=== PATIENT | male | born 1970 | race Caucasian/White ===

== ENCOUNTER 2023-12-15 07:51 | Outpatient (REF) | payer OTHER, SELFPAY | END 2023-12-15 07:52 | disposition home or self-care (01) | LOC: HO.BBR 07:51 | PROVIDERS: Visit Provider Physician Assistant | DX: D45 Polycythemia vera (principal) | CPT/HCPCS: 85018; 99195 ==

== ENCOUNTER 2023-12-29 08:05 | Outpatient (REF) | payer OTHER, SELFPAY | END 2023-12-29 08:06 | disposition home or self-care (01) | LOC: HO.BBR 08:05 | PROVIDERS: Visit Provider Physician Assistant | DX: D45 Polycythemia vera (principal) | CPT/HCPCS: 85014; 85018; 99195 ==

== ENCOUNTER 2024-01-12 08:04 | Outpatient (REF) | payer OTHER, SELFPAY | END 2024-01-12 08:05 | disposition home or self-care (01) | LOC: HO.BBR 08:04 | PROVIDERS: Visit Provider Physician Assistant | DX: D45 Polycythemia vera (principal) | CPT/HCPCS: 85018; 99195 ==

== ENCOUNTER 2024-01-26 08:55 | Outpatient (REF) | payer OTHER, SELFPAY | END 2024-01-26 08:56 | disposition home or self-care (01) | LOC: HO.BBR 08:55 | PROVIDERS: Visit Provider Physician Assistant | DX: D45 Polycythemia vera (principal) | CPT/HCPCS: 85014; 85018; 99195 ==

== ENCOUNTER 2024-03-29 08:05 | Outpatient (REF) | payer OTHER, SELFPAY | END 2024-03-29 08:06 | disposition home or self-care (01) | LOC: HO.BBR 08:05 | PROVIDERS: Visit Provider Physician Assistant | DX: D45 Polycythemia vera (principal) | CPT/HCPCS: 85018; 99195 ==

== ENCOUNTER 2024-05-31 08:09 | Outpatient (REF) | payer OTHER, SELFPAY ==
--- OUTSIDE RECORDS SUMMARY | 2024-05-31 08:19 | XMS_ITS | Clinical Summary ---
Author Organization [facility] Address [address] [place] [address] Care Team Providers Care Bath Steward/Stewardess Name Role Phone Desire Negro NP Primary Care Provider [phone] Allergies No known active allergies Medications Medication Sig Dispensed Refills Start Date End Date Status Cholecalciferol 50 MCG (1999) TABS Take 3 tablets by mouth daily. 0 Active allopurinol (ZYLOPRIM) 300 MG tablet Take 1 tablet (300 mg total) by mouth daily. 0 Active fluticasone (FLONASE) 50 MCG/ACT nasal spray spray/apply 2 sprays in each nostril daily. 0 Active aspirin EC 81 MG tablet Take 1 tablet (81 mg total) by mouth daily. 0 Active Active Problems Problem Noted Date Diagnosed Date Polycythemia vera 2023 Social History Tobacco Use Types Packs/Day Years Used Date Smoking Tobacco: Never Smokeless Tobacco: Never Tobacco Cessation:Counseling Given: Not Answered Sex and Gender Information Value Date Recorded Sex Assigned at Not on file Gender Identity Not on file Sexual Orientation Not on file Job Start Date Occupation Industry Not on file Not on file Not on file Last Filed Vital Signs Vital Sign Reading Time Taken Comments Blood Pressure 133/96 01/25/2024 9:47 AM EDT Pulse 87 01/25/2024 9:47 AM EDT Temperature 36.6 ??C (97.9 ??F) 01/25/2024 9:47 AM ED T Respiratory Rate - - Oxygen Saturation 98% 01/25/2024 9:47 AM EDT Inhaled Oxygen Concentration - - Weight 102.5 kg (226 lb) 01/25/2024 9:47 AM EDT Height - - Body Mass Index - - Plan of Treatment Health Maintenance Due Date Last Done Comments Hepatitis B Vaccines (1 of 3 - 3-dose series) 1969 Hepatitis C Screening 1969 Pneumococcal Vaccine (1 of 2 - PCV) 12/15/1975 Depression Screening 1981 Preventative Health Evaluation 12/15/1987 DTap / Tdap / Td (1 - Tdap) 1988 Shingrix-Zoster Vaccine (1 o f 2) 1988 Colon Cancer Screening (Colonoscopy) 2014 COVID-19 Vaccine (3 - Pfizer risk series) 08/10/2020 07/13/2020, 06/22/2020 Influenza Vaccine (#1) 2023 RSV Ped < 20 months Aged Out No longe r eligible based on patient's age to complete this topic Care Teams Bath Steward/Stewardess Relationship Specialty Start Date End Date Desire Negro NP [address] [place] [address] PCP - General Family Medicine 11/22/23
--- OUTSIDE RECORDS SUMMARY | 2024-05-31 08:19 | XMS_ITS | Clinical Summary ---
Author Organization [facility] Address [address] [place] [address] Care Team Providers Care B2B Account Executive Name Role Phone Unavailable Primary Care Provider Unavailabl e Allergies No known active allergies Medications No known medications Social History Tobacco Use Types Packs/Day Years Used Date Smoking Tobacco: Never Assessed Sex and Gender Information Value Date Recorded Sex Assigned at Not on file Gender Identity Not on file Sexual Orientation Not on file Last Filed Vital Signs Vital Sign Reading Time Taken Comments Blood Pressure 116/81 05/28/2020 1:21 PM EST Pulse 95 05/28/2020 1:21 PM EST Temperature 36.6 ??C (97.8 ??F) 05/28/2020 1:21 PM ES T Respiratory Rate - - Oxygen Saturation 99% 05/28/2020 1:21 PM EST Inhaled Oxygen Concentration - - Weight 95.3 kg (210 lb) 05/28/2020 1:21 PM EST Height 175.3 cm (5' 9 ) 05/28/2020 1:21 PM EST Body Mass Index 31.01 05/28/2020 1:21 PM EST Plan of Treatment Health Maintenance Due Date Last Done Comments Hepatitis C Virus Screening 1969 HIV Screening 1982 DTaP/Tdap/Td Vaccines (1 - Tdap) 1988 Hepatitis B Vaccines (1 of 3 - 19+ 3-dose series) 1988 Colonoscopy 2014 Pneumococcal Vaccines 50+ (1 of 1 - PCV) 12/15/2019 Zoster (Shingles) Vaccine (1 of 2) 12/15/2019 Influenza Vaccine 11/02/2023 COVID-19 Vaccine ( - 2023-2 5 season) 2023 Pneumococcal Vaccine: Pediat kev (0-5 Years) and At-Risk Patients (6 to 49 Years) Aged Out No longer eligible b ased on patient's age to complete this topic
--- OUTSIDE RECORDS SUMMARY | 2024-05-31 08:19 | XMS_ITS | Clinical Summary ---
Author Organization [address] [facility] Building Address [address] [place] [phone] Phone Care Team Providers Care Glass Fitter Name Role Phone Desire Negro NP Primary Care Provider [phone] Allergies No known active allergies Medications cholecalciferol (VITAMIN D-3) 50 mcg (2,000 unit) tablet Take 3 tablets by mouth daily. 4 Active allopurinoL (ZYLOPRIM) 300 mg tablet Take 1 Tablet by mouth daily 4 Active aspirin 81 mg EC tablet Take 1 Tablet by mouth daily 3 Active fluticasone propionate (FLONASE) 50 mcg/actuation nasal spray USE 2 SPRAYS IN EACH NOSTRIL EVERY DAY 48 mL 4 Active amLODIPine (NORVASC) 5 mg tablet Take 1 tablet (5 mg total) by mouth 1 (one) time each day. 90 each 1 5 11/05/19 25 Active amLODIPine (NORVASC) 5 mg tablet Take 1 tablet (5 mg total) by mouth 1 (one) time each day. 90 each 1 5 05/08/19 25 Discontinu ed(Reorder ) Active Problems Problem Noted Date Diagnosed Date Primary hypertension 01/12/2024 Acute idiopathic gout of multiple sites 10/25/19 Thrombocytopenia 10/24/2022 Thrombocytosis 10/24/2022 Vitamin D deficiency 10/24/2022 Encounters Date Type Department Care Team Description 04/22/2024 8:30 AM EST Office Visit Internal Medicine - [address] [phone] Desire Negro, REHANA Primary hypertension (Primary Dx); Acute idiopathic gout of multiple sites; Vitamin D deficiency; Acute otitis externa of left ear, unspecified type from Last 3 Months Immunizations Name Administration Dates Next Due Influenza trivalent, MDCK, 0 .5mL, preservative free (Flucelvax) 6mo and older 02/23/2024 Pfizer Covid-19 Bivalent, Or iginal + Ba.1 (Non-US Trademark [employer] Bivalent) 12/26/2021 Td Tetanus diptheria (Tdvax) 7yo and older 05/26 Social History Tobacco Use Types Packs/Day Years Used Date Smoking Tobacco: Never Smokeless Tobacco: Never Sex and Gender Information Value Date Recorded Sex Assigned at Not on file Legal Sex Male 9:04 AM EST Gender Identity Not on file Sexual Orientation Not on file Obstetrics History Last Filed Vital Signs Vital Sign Reading Time Taken Comments Blood Pressure 124/88 04/22/2024 8:43 AM EST Pulse 72 04/22/2024 8:36 AM EST Temperature - - Respiratory Rate - - Oxygen Saturation - - Inhaled Oxygen Concentration - - Weight 104 kg (229 lb 9.6 oz) 04/22/2024 8:36 AM EST Height 175.3 cm (5' 9 ) 04/22/2024 8:36 AM EST Body Mass Index 33.91 04/22/2024 8:36 AM EST Plan of Treatment Upcoming Encounters Date Type Department Care Team (Late st Contact Info) Description 08/06/2024 9:00 AM EDT Office Visit [facility] Hematology Oncology [address] [place] [phone] Alexus Graham MD [address] [place] [address] 09/04/2024 9:00 AM EDT Office Visit Internal Medicine - [address] [phone] Desire Negro, REHANA [address] [place] [address] Health Maintenance Due Date Last Done Comments Pneumococcal Vaccine: 50+ Years (1 of 2 - PCV) 1988 Zoster Vaccines (1 of 2) 1988 Depression Screening 03/06/2022 HIV Screening 03/06/2022 Social Influencers of Health Screening 03/06/2022 COVID-19 Vaccine (4 - 2023-2 5 season) 2023 03/14/2021, 07/13/2020, 06/22/2020 Hypertension/CHF/CAD Annual BMP Blood Test 05/26/2024 05/26/2023 Cholesterol Screening (Lipid Panel) 05/26/2028 05/26/2023 Colorectal Cancer Screening: Colonoscopy 2030 2020 DTaP,Tdap,and Td Vaccines (2 - Td or Tdap) 05/26/2033 05/26/2023 Hepatitis C Screening Completed 10/24/2022 Influenza Vaccine Completed 02/23/2024, 01/23/2022, 01/25/2021 HIB Vaccines Aged Out No longer eligi ble based on patient's age to complete this topic HPV Vaccines Aged Out No longer eligi ble based on patient's age to complete this topic Hepatitis A Vaccines Aged Out No long er eligible based on patient's age to complete this topic Hepatitis B Vaccines Discontinued IPV Vaccines Aged Out No longer eligi ble based on patient's age to complete this topic MMR Vaccines Aged Out No longer eligi ble based on patient's age to complete this topic Meningococcal ACWY Vaccine Aged Out N o longer eligible based on patient's age to complete this topic Meningococcal B Vacine Aged Out No lo nger eligible based on patient's age to complete this topic Pneumococcal Vaccine: Pediatrics (0 to 5 Years) and At-Risk Patients (6 to 64 Years) Discontinued RSV Immunization Patients Under 20 months Aged Out No longer eligible based on patient's age to complete this topic Varicella Vaccines Aged Out No longer eligible based on patient's age to complete this topic Procedures Procedure Name Priority Date/Time Associated Diagnosis Comments ANNUAL BMP BLOOD TEST Routine 05/26/2023 LIPID PANEL Routine 05/26/2023 HEPATITIS C SCREENING Routine 10/24/2022 COLONOSCOPY Routine 2020 from Last 3 Months or Most Recently Relevant to Health Maintenance Results * Annual BMP Blood Test (05/26/2023) Pathologist [facility] Annual BMP Blood Test abstracted [facility] Provider HEALTH MAINTENANCE Final Result * (ABNORMAL) Lipid panel (05/26/2023) [facility] LDL/HDL Ratio 3 0 - 4 Triglycerides 80 0 - 150 mg/dL Cholesterol 211(A) 0 - 200 mg/dL HDL 72 >=40 mg/dL LDL Cholesterol 123(A) 0 - 100 mg/dL Blood Venous blood specimen / Unknown [facility] Provider LAB BLOOD ORDERABLES Thelma l Result * Hepatitis C Screening (10/24/2022) Pathologist [facility] Hepatitis C Screening abstracted [facility] Provider HEALTH MAINTENANCE Final Result * Colonoscopy (2020) Pathologist [facility] Colonoscopy abstracted, no interpretation Anatomical Region Laterality Modality Other [facility] Provider HEALTH MAINTENANCE Final Result from Last 3 Months or Most Recently Relevant to Health Maintenance Insurance Care Teams Glass Fitter Relationship Specialty Start Date End Date Desire Negro NP [address] [place] [id number] PCP - General 05/04/22
== END 2024-05-31 08:10 | disposition home or self-care (01) ==
LOC: HO.BBR 08:09
PROVIDERS: Visit Provider Internal Medicine
DX: D45 Polycythemia vera (principal)
CPT/HCPCS: 85014; 85018; 99195

== ENCOUNTER 2024-07-26 08:02 | Outpatient (REF) | payer OTHER, SELFPAY ==
--- OUTSIDE RECORDS SUMMARY | 2024-07-26 08:07 | XMS_ITS | Clinical Summary ---
Author Organization [facility] Address [address] [place] [address] Care Team Providers Care Railroad Emergency Services Manager Name Role Phone Desire Negro NP Primary Care Provider [phone] Allergies No known active allergies Medications Medication [...] age to complete this topic Care Teams Railroad Emergency Services Manager Relationship Specialty Start Date End Date Desire Negro NP [address] [place] [address] PCP - General Family Medicine 11/22/23
--- OUTSIDE RECORDS SUMMARY | 2024-07-26 08:07 | XMS_ITS | Clinical Summary ---
Author Organization [address] [facility] Building Address [address] [place] [phone] Phone Care Team Providers Care Wheel Worker Name Role Phone Desire Negro NP Primary Care Provider Allergies No known active allergies Medications cholecalcifero l (VITAMIN D-3) 50 mcg (2,000 unit) tablet Take 3 tablets by mouth daily. 4 Active aspirin 81 mg EC tablet Take 1 Tablet by mouth daily 3 Active fluticasone propionate (FLONASE) 50 mcg/actuation nasal spray USE 2 SPRAYS IN EACH NOSTRIL EVERY DAY 48 mL 4 Active amLODIPine (NORVASC) 5 mg tablet Take 1 tablet (5 mg total) by mouth 1 (one) time each day. 90 each 1 5 11/05/19 25 Active allopurinoL (ZYLOPRIM) 300 mg tablet TAKE 1 TABLET BY MOUTH EVERY DAY 90 tablet 1 5 Active allopurinoL (ZYLOPRIM) 300 mg tablet Take 1 Tablet by mouth daily 4 07/23/19 25 Discontinued Active Problems Problem Noted Date Diagnosed Date Primary hypertension 01/12/2024 Acute idiopathic gout of multiple sites 10/25/19 23 Thrombocytopenia (CMS/HCC V24) 10/24/2022 Thrombocytosis 10/24/2022 Vitamin D deficiency 10/24/2022 Immunizations Name Administration Dates Next Due Influenza trivalent, MDCK, 0 .5mL, preservative free (Flucelvax) 6mo and older 02/23/2024 Pfizer Covid-19 Bivalent, Or iginal + Ba.1 (Non-US Trademark COMIRNATY Bivalent) 12/26/2021 Td Tetanus diptheria (Tdvax) 7yo [...] Description 08/06/2024 9:00 AM EDT Office Visit [facility] Hematology Oncology [address] [place] [phone] Alexus Graham MD [address] [place] [address] 09/04/2024 9:00 AM EDT Office Visit Internal Medicine - [address] [place] [address] Desire Negro NP [address] [place] [address] Health Maintenance Due Date Last Done Comments [...] age to complete this topic Meningococcal B Vaccine Aged Out No l onger eligible based on patient's age to complete [...] Results * Annual BMP Blood Test (05/26/2023) [facility] Annual BMP Blood Test abstracted [facility] Provider HEALTH MAINTENANCE Final Result * (ABNORMAL) Lipid panel (05/26/2023) [facility] LDL/HDL Ratio 3 0 - 4 Triglycerides 80 0 - 150 mg/dL Cholesterol 211(A) 0 - 200 mg/dL HDL 72 >=40 mg/dL LDL Cholesterol 123(A) 0 - 100 mg/dL Blood Venous blood specimen / Unknown [facility] Provider LAB BLOOD ORDERABLES Thelma l Result * Hepatitis C Screening (10/24/2022) [facility] Hepatitis C Screening abstracted [facility] Provider HEALTH MAINTENANCE Final Result * Colonoscopy (2020) [facility] Colonoscopy abstracted, no interpretation Anatomical Region Laterality Modality Other [facility] Provider HEALTH MAINTENANCE Final Result from Last 3 Months or Most Recently Relevant to [place] [id number] Care Teams Wheel Worker Relationship Specialty Start Date End Date Desire Negro NP [address] [facility] [place] [address] [facility] - General 05/04/22
--- OUTSIDE RECORDS SUMMARY | 2024-07-26 08:07 | XMS_ITS | Clinical Summary ---
Author Organization [facility] Address [address] [place] [address] Care Team Providers Care Winder Tender Name Role Phone Unavailable Primary Care Provider Unavailabl e Allergies No known active allergies Medications No known medications Social History Tobacco Use Types Packs/Day Years Used Date Smoking Tobacco: Never Assessed Sex and Gender Information Value Date Recorded Sex Assigned at Not on file Legal Sex Male 12:52 PM EST Gender Identity Not on file Sexual [...] (1 of 3 - 19+ 3-dose series) 12/02 Colonoscopy 2014 Pneumococcal Vaccines 50+ (1 of 1 - PCV) 12/15/2019 Zoster (Shingles) Vaccine (1 of 2) 12/15/2019 Influenza Vaccine 11/02/2023 COVID-19 Vaccine ( - 2023- season) 2023 Insurance [facility]
== END 2024-07-26 08:03 | disposition home or self-care (01) ==
LOC: HO.BBR 08:02
PROVIDERS: Visit Provider Internal Medicine
DX: D45 Polycythemia vera (principal)
CPT/HCPCS: 85014; 85018; 99195

== ENCOUNTER 2024-09-27 08:04 | Outpatient (REF) | payer OTHER, SELFPAY ==
--- OUTSIDE RECORDS SUMMARY | 2024-09-27 08:07 | XMS_ITS | Clinical Summary ---
Author Organization [facility] Address [address] [place] [address] Care Team Providers Care Glass Lined Tank Repairer Name Role Phone Desire Negro NP Primary Care Provider Unavaila ble Allergies No known active allergies Medications allopurinol (ZYLOPRIM) 300 MG tablet Take 300 mg by mouth. 5 Active amLODIPine (NORVASC) 5 MG tablet Take 5 mg by mouth. 5 11/05/19 25 Active fluticasone (FloNASE) 50 mcg/spray nasal spray 2 sprays. Active Cholecalciferol 50 MCG (2000 UT) Tab Take 3 tablets by mouth. Active aspirin enteric coated 81 MG EC tablet Take 81 mg by mouth. Active ofloxacin (FLOXIN) 0.3 % otic solutionIndicat ions:Chronic serous otitis media, left ear Administer 5 drops into the left ear daily. 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); Chronic serous otitis media, left ear; Eustachian tube dysfunction, bilateral from Last 3 Months Immunizations Immunization Administration Dates Next Due Influenza, Trivalent (FLUCEL VAX) MDCK, Preservative Free IM 02/23/2024 Social History Tobacco Use Types Packs/Day Years Used Date Smoking Tobacco: Never Passive Smoke Exposure: Never Smokeless Tobacco: Never Tobacco Cessation:Counseling Given: Not Answered Alcohol Use Standard Drinks/Week Comments Yes 0 (1 standard drink = 0.6 oz pur e alcohol) Sex and Gender Information Value Date Recorded Sex Assigned at Not on file Legal Sex Male 12:52 PM EST Gender Identity Not on file Sexual Orientation Not on file Last Filed Vital Signs Vital Sign Reading Time Taken Comments Blood Pressure 116/81 05/28/2020 1:21 PM EST Pulse 95 05/28/2020 1:21 PM EST Temperature 36.6 C (97.8 F) 05/28/2020 1:21 PM EST Respiratory Rate - - Oxygen Saturation 99% 05/28/2020 1:21 PM EST Inhaled Oxygen Concentration - - Weight 99.8 kg (220 lb) 09/13/2024 12:32 PM EDT Height 175.3 cm (5' 9 ) 09/13/2024 12:32 PM EDT Body Mass Index 32.49 09/13/2024 12:32 PM EDT Plan of Treatment Upcoming Encounters Date Type Department Care Team (Late st Contact Info) Description 10/17/2024 12:00 PM EDT Office Visit [facility] [address] [phone] Jb Anne MD [address] [place] [phone] Health Maintenance Due Date Last Done Comments Hepatitis C Virus Screening 1969 COVID-19 Vaccine (#1) 1974 HIV Screening 1982 DTaP/Tdap/Td Vaccines (1 - Tdap) 1988 Hepatitis B Vaccines (1 of 3 - 19+ 3-dose series) 12/02 Pneumococcal Vaccines 50+ (1 of 2 - PCV) 1988 Zoster (Shingles) Vaccine (1 of 2) 1988 Colonoscopy 2014 Influenza Vaccine 11/01/2024 02/23/2024 Insurance Care Teams Glass Lined Tank Repairer Relationship Specialty Start Date End Date Desire Negro NP PCP - General 09/13/24
== END 2024-09-27 08:05 | disposition home or self-care (01) ==
LOC: HO.BBR 08:04
PROVIDERS: Visit Provider Internal Medicine
DX: D45 Polycythemia vera (principal)
CPT/HCPCS: 85014; 85018; 99195

== ENCOUNTER 2024-11-29 08:12 | Outpatient (REF) | payer OTHER, SELFPAY ==
--- OUTSIDE RECORDS SUMMARY | 2024-11-29 08:55 | XMS_ITS ---
Author Name [facility] Organization Unknown History of Medication Use Medication Directions Dispensed Refills Start Date End Date Stat us ofloxacin (FLOXIN) 0.3 % otic solution Administer 5 drops into the left ear daily. 09/13/2024 active allopurinol (ZYLOPRIM) 300 MG tablet Take 300 mg by mouth. 07/22/2024 active amLODIPine (NORVASC) 5 MG tablet Take 5 mg by mouth. 05/08/2024 active aspirin enteric coated 81 MG EC tablet Take 81 mg by mouth. active Cholecalciferol 50 MCG (2000 UT) Tab Take 3 tablets by mouth. active fluticasone (FloNASE) 50 mcg/spray nasal spray 2 sprays. active Problems Problem Status Onset Date Problem Type Date of Resolution Source Thrombocytosis active 2022-10-24 ProblemAct [facility] CT Acute idiopathic gout of multiple sites active 2022-10-24 ProblemAct [facility] Conductive hearing loss of left ear with unrestricted hearing of right ear active EncounterDiagnosisAct [facility] Primary hypertension active 2024-01-12 ProblemAct [facility] Vitamin D deficiency active 2022-10-24 ProblemAct [facility] Thrombocytopenia active 2022-10-24 ProblemAct [facility] Chronic serous otitis media, left ear active EncounterDiagnosisAct [facility] CT Polycythemia vera active 2023 ProblemAct [facility] Immunizations Vaccine Date Source Lot Number Status Influenza, Trivalent (FLUCEL VAX) MDCK, Preservative Free IM 02/23/2024 [facility] [id number] completed Encounters Encounter Type Encounter Reason Primary Diagnosis Location Date Ambulatory Hearing Loss Hearing Loss [facility] [employer] 10/15/2024 Ambulatory Otalgia Otalgia [facility] 09/13/2024 Care Team Organization Name Specialty Phone Email Start Date End [facility] 10/15/2024 11/13/2024 [email or web address] 09/14/2024 11/13/2024 [facility] HENRIETTA FISHER Primary Care 09/14/2024 [facility] 09/04/2024
--- OUTSIDE RECORDS SUMMARY | 2024-11-29 08:55 | XMS_ITS | Encounter Summary ---
Author Organization [facility] Address [address] [facility] [address] [place] [phone] Phone Care Team Providers Care Baker Helper Name Role Phone Aníbal Maurice MD Primary Care Provid er Encounter Details Date Type Department Care Team (Late st Contact Info) Description 04/13/2020 Procedure Pass [facility] Endoscopy Admitting Dept Virtual Department [address] [place] [address] Social History Tobacco Use Types Packs/Day Years Used Date Smoking Tobacco: Never Smokeless Tobacco: Never Alcohol Use Standard Drinks/Week Comments Yes 10 (1 standard drink = 0.6 oz pu re alcohol) Sex and Gender Information Value Date Recorded Sex Assigned at Not on file Legal Sex Male 4:27 PM EST Gender Identity Not on file Sexual Orientation Not on file documented as of this encounter Plan of Treatment Not on file documented as of this encounter Visit Diagnoses Not on filedocumented in this encounter Care Teams Baker Helper Relationship Specialty Start Date End Date Aníbal Maurice MD [address] [place] [address] PCP - General Internal Medicine 02/18/20 documented as of this encounter Additional Source Comments The information contained in this document represents components of the legal health record. It is not the complete legal health record.[facility]
--- OUTSIDE RECORDS SUMMARY | 2024-11-29 08:55 | XMS_ITS | Clinical Summary ---
Author Organization [facility] Address [address] [place], [place] [phone] Phone Care Team Providers Care Medical Genetics Director Name Role Phone Aníbal Maurice MD Primary Care Provid er Allergies No known active allergies Medications allopurinol (ZYLOPRIM) 300 MG tablet Take 300 mg by mouth daily. Active ibuprofen (ADVIL,MOTRIN) 200 MG tablet Take 400 mg by mouth every 6 (six) hours as needed for pain (specific location in comments). Active Social History Tobacco Use Types Packs/Day Years Used Date Smoking Tobacco: Never Smokeless Tobacco: Never Alcohol Use Standard Drinks/Week Comments Yes 10 (1 standard drink = 0.6 oz pu re alcohol) Education Answer Date Recorded Are you interested in more education? Not on orlin e 07/29/2022 Are you concerned about learning? Not on file 07/29/2022 No 07/29/2022 No 07/29/2022 Digital Access Answer Date Recorded No 08/27/2022 No 08/27/2022 No 08/27/2022 Reliable internet access at home? Not on file 08/27/2022 Device with a working camera? Not on file Sex and Gender Information Value Date Recorded Sex Assigned at Not on file Legal Sex Male 4:27 PM EST Gender Identity Not on file Sexual Orientation Not on file Last Filed Vital Signs Vital Sign Reading Time Taken Comments Blood Pressure 111/80 04/13/2020 11:55 AM EST Pulse 78 04/13/2020 10:50 AM EST Temperature 36.5 C (97.7 F) 04/13/2020 11:44 AM EST Respiratory Rate 18 04/13/2020 11:55 AM EST Oxygen Saturation 97% 04/13/2020 11:55 AM EST Inhaled Oxygen Concentration - - Weight 95.3 kg (210 lb) 04/09/2020 11:26 AM EST Height 175.3 cm (5' 9 ) 04/09/2020 11:26 AM EST Body Mass Index 31.01 04/09/2020 11:26 AM EST Plan of Treatment Health Maintenance Due Date Last Done Comments Adult Td,Tdap Booster 1970 CREATININE LEVEL 1969 LIPID PANEL 1969 DEPRESSION SCREENING 1981 HEPATITIS C SCREENING 12/15/1987 HIV ONE-TIME SCREENING (18-6 5 YEARS) 12/15/1987 COLOGUARD 2014 FIT TEST 2014 FOBT 2014 SIGMOIDOSCOPY 2014 VIRTUAL COLONOSCOPY 2014 PNEUMOCOCCAL VACCINES (50+ years) (1 of 1 - PCV) 12/15/2019 ZOSTER VACCINES (1 of 2) 12/15/2019 COVID-19 VACCINE (3 - 2023-2 5 season) 2023 07/13/2020, 06/22/2020 COLONOSCOPY 04/13/2030 04/13/2020 COLORECTAL CANCER SCREENING 04/13/2030 SMOKING STATUS SCREENING (On ce After 26 Yrs) Completed 04/13/2020 HEPATITIS A VACCINES Aged Out No long er eligible based on patient's age to complete this topic HIB VACCINES Aged Out No longer eligi ble based on patient's age to complete this topic MENINGOCOCCAL VACCINES (ACWY) Aged Out No longer eligible based on patient's age to complete this topic MENINGOCOCCAL VACCINES (B) Aged Out N o longer eligible based on patient's age to complete this topic Medical Devices Not on file Procedures Procedure Name Priority Date/Time Associated Diagnosis Comments ENDOSCOPY, COLON 04/13/2020 11:1 8 AM EST from Last 3 Months or Most Recently Relevant to Health Maintenance Results * ENDOSCOPY, COLON (04/13/2020 11:18 AM EST) Narrative Transcriptions Oleg Dozier MD - 04/13/2020 11:18 AM EST Patient Name: Jeet Lynch Attending MD:: OLEG DOZIER MD Procedure Date: 04/13/2020 11:18 AM Date of : 1970 Age: 49 Admit Type: Outpatient Gender: Male Room: [place] [address] Referring MD: Aníbal Maurice MD Exam Type: Colonoscopy Indications: Colon cancer screening in patient at increased risk: Family history of 1st-degree relative with colon polyps, This is the patient's first colonoscopy Medications: Monitored Anesthesia Care Procedure: Informed consent was obtained from the patient after discussion of the indications, limitations, alternatives, benefits, and risks of the procedure. Risks specifically discussed include but are not limited to medication reactions, missed lesions, bleeding, perforation, or the need for emergentsurgery. Throughout the procedure, the patient's bloodpressure, pulse, end-tidal CO2, and oxygen saturations were monitored continuously. The Olympus adult variable colonoscope [id number] #2was introduced through the anus and advanced to the terminal ileum, with identification of theappendiceal orifice and IC valve. The colonoscopy was performed without difficulty. The patient tolerated theprocedure fairly well. The quality of the bowel preparationwas good. Complications: No immediate complications. Estimated blood loss:None. Findings: The perianal and digital rectal examinations were normal. Pertinent negatives include normal sphincter tone. Retroflexion in the right colon was performed. The exam was otherwise without abnormality on direct and retroflexion views. The terminal ileum appeared normal. Impression: - The examination was otherwise normal on direct and retroflexion views. - The examined portion of the ileum was normal. - No specimens collected. Recommendation: - Repeat colonoscopy in 10 years for screeningpurposes. OLEG DOZIER MD 04/13/2020 11:44:42 AM This report has been signed electronically. Number of Addenda: 0 Note Initiated On: 04/13/2020 11:18 AM Procedure Code(s): --- Professional --- 04598, Colonoscopy, flexible; diagnostic, including collection of specimen(s) by brushing or washing, when performed (separateprocedure) --- Technical --- 20678, Colonoscopy, flexible; diagnostic, including collection of specimen(s) by brushing or washing, when performed (separateprocedure) Diagnosis Code(s): --- Professional --- Z83.71, Family history of colonic polyps --- Technical --- Z83.71, Family history of colonic polyps CPT copyright 2018 [employer]. All rights reserved. The codes documented in this report are preliminary and upon medical service representative reviewmay be revised to meet current compliance requirements. Procedure Date: 04/13/2020 11:18:[address] [place] [address] Aníbal Maurice MD GI PROCEDURE ORDERAB LES Final Result from Last 3 Months or Most Recently Relevant to Health Maintenance [place] [address] [place] [address] HMO (Home) [address] ([address]) [address] ([address] ([address]) [address] [facility] Address: [address] [address] Care Teams Medical Genetics Director Relationship Specialty Start Date End Date Aníbal Maurice MD [address] [place] [address] PCP - General Internal Medicine 02/18/20 Additional Source Comments The information contained in this document represents components of the legal health record. It is not the complete legal health record.[facility]
--- OUTSIDE RECORDS SUMMARY | 2024-11-29 08:55 | XMS_ITS | Clinical Summary ---
Author Organization [facility] Address [address] [place] [address] Care Team Providers Care Healthcare Associate Name Role Phone Desire Negro NP Primary Care Provider Unavaila ble Allergies No known active allergies Medications allopurinol (ZYLOPRIM) 300 MG tablet Take 300 mg by mouth. 5 Active amLODIPine (NORVASC) 5 MG tablet Take 5 mg by mouth. 5 Active fluticasone (FloNASE) 50 mcg/spray nasal spray 2 sprays. Active Cholecalciferol 50 MCG (1999) Tab Take 3 tablets by mouth. Active [...] Encounters Date Type Department Care Team Description 10/15/2024 10:00 AM EDT Office Visit [facility] [address] [phone] Jb Anne MD Conductive hearing loss of left ear with unrestricted hearing of right ear (Primary Dx); Chronic serous otitis media, left ear 09/13/2024 12:15 PM EDT Clinical Support [facility] [address] [phone] Jb Anne MD Conductive hearing loss of [...] - - Weight 99.8 kg (220 lb) 10/15/2024 9:58 AM EDT Height 175.3 cm (5' 9 ) 10/15/2024 9:58 AM EDT Body Mass Index 32.49 10/15/2024 9:58 AM EDT Plan of Treatment Upcoming Encounters Date Type Department Care Team (Late st Contact Info) Description 04/17/2025 9:00 AM EST Clinical Support [facility] [place] [phone] Frieda Booker Au.D [address] [place] [address] 04/17/2025 9:30 AM EST Office Visit [facility] [place] [phone] Jb Anne MD [address] [place] [address], [place] [address] Health Maintenance Due Date Last Done Comments Hepatitis C Virus Screening 1969 COVID-19 Vaccine (#1) 1974 HIV Screening 1982 DTaP/Tdap/Td Vaccines (1 - Tdap) 1988 Hepatitis B Vaccines (1 of 3 - 19+ 3-dose series) 12/02 Pneumococcal Vaccines 50+ (1 of 2 - PCV) 1988 Zoster (Shingles) Vaccine (1 of 2) 1988 Colonoscopy 2014 Influenza Vaccine 11/01/2024 02/23/2024 Insurance Care Teams Healthcare Associate Relationship Specialty Start Date End Date Desire Negro NP PCP - General 09/13/24
--- OUTSIDE RECORDS SUMMARY | 2024-11-29 08:55 | XMS_ITS | Clinical Summary ---
Author Organization [facility] Address [address] [place] [address] Phone Care Team Providers Care Instrument Technologist Name Role Phone Desire Negro NP Primary Care Provider Allergies No known active allergies Medications cholecalciferol (VITAMIN D-3) 50 mcg (2,000 unit) tablet Take 3 tablets by mouth daily. 05/29/2023 Active aspirin 81 mg EC tablet Take 1 Tablet by mouth daily 10/24/2022 Active amLODIPine (NORVASC) 5 mg tablet Take 1 tablet (5 mg total) by mouth 1 (one) time each day. 90 each 1 05/08/2024 Active allopurinoL (ZYLOPRIM) 300 mg tablet TAKE 1 TABLET BY MOUTH EVERY DAY 90 tablet 1 07/22/2024 Active Active Problems Problem Noted Date Diagnosed Date Primary hypertension 01/12/2024 Acute idiopathic gout of multiple sites 10/25/19 Thrombocytopenia (CMS/HCC V24) 10/24/2022 Thrombocytosis 10/24/2022 Vitamin D deficiency 10/24/2022 Encounters Date Type Department Care Team Description 09/04/2024 9:40 AM EDT Lab Draw Station - [address] [phone] Vitamin D deficiency; Screening for prostate cancer; Screening for metabolic disorder; Encounter for lipid screening for cardiovascular disease 09/04/2024 9:00 AM EDT Office Visit Internal Medicine - [address] [place] [address] Desire Negro NP Adult general medical examination (Primary Dx); Primary hypertension; Vitamin D deficiency; Acute idiopathic gout of multiple sites; Screening for metabolic disorder; Encounter for lipid screening for cardiovascular disease; Screening for prostate cancer; Hearing loss of left ear, unspecified hearing loss type; Left ear pain; Abnormal tympanic membrane of left ear from Last 3 Months Immunizations Name Administration Dates Next Due Influenza trivalent, MDCK, 0 .5mL, preservative free (Flucelvax) 6mo and older 02/23/2024 Pfizer Covid-19 Bivalent, Or iginal + Ba.1 (Non-[employer] Bivalent) 12/26/2021 Td Tetanus diptheria (Tdvax) 7yo and older 05/26 Family History Medical History Relation Name Comments Diabetes Brother Hypertension Brother Prostate cancer Brother Relation Name Status Comments Brother Social History Tobacco Use Types Packs/Day Years Used Date Smoking Tobacco: Never Smokeless Tobacco: Never Tobacco Cessation:Counseling Given: Not Answered Alcohol Use Standard Drinks/Week Comments Yes 14 (1 standard drink = 0.6 oz pu re alcohol) Sex and Gender Information Value Date Recorded Sex Assigned at Not on file Legal Sex Male 9:04 AM EST Gender Identity Not on file Sexual Orientation Not on file Obstetrics History Last Filed Vital Signs Vital Sign Reading Time Taken Comments Blood Pressure 114/86 09/04/2024 9:24 AM EDT Pulse 70 09/04/2024 9:06 AM EDT Temperature 36.6 C (97.9 F) 08/06/2024 9:05 AM EDT Respiratory Rate - - Oxygen Saturation 100% 08/06/2024 9:05 AM EDT Inhaled Oxygen Concentration - - Weight 103 kg (226 lb 12.8 oz) 09/04/2024 9:06 A M EDT Height 175.3 cm (5' 9 ) 09/04/2024 9:06 AM EDT Body Mass Index 33.49 09/04/2024 9:06 AM EDT Plan of Treatment Upcoming Encounters Date Type Department Care Team (Late st Contact Info) Description 03/11/2025 8:30 AM EST Office Visit Internal Medicine - [facility] [address] [place] [address] Desire Negro, REHANA [address] [place] [address] 04/14/2025 9:00 AM EST Office Visit [facility] Hematology Oncology [address] [place] [phone] Alexus Graham MD [address] [place] [address] Health Maintenance Due Date Last Done Comments Zoster Vaccines (1 of 2) 1988 Social Influencers of Health Screening 03/06/2022 Depression Screening 04/03/2024 Influenza Vaccine (#1) 2024 , 01/23/2022, 01/25/2021 Hypertension/CHF/CAD Annual BMP Blood Test 09/04/2025 09/04/2024, 05/26/2023 Cholesterol Screening (Lipid Panel) 09/04/2029 09/04/2024, 05/26/2023 Colorectal Cancer Screening: Colonoscopy 2030 2020 DTaP,Tdap,and Td Vaccines (2 - Td or Tdap) 05/26/2033 05/26/2023 COVID-19 Vaccine Discontinued 03/14/2021, 07/13/2020, 06/22/2020 Hepatitis C Screening Completed 10/24/2022 HIB Vaccines Aged Out No longer eligi ble based on patient's age to complete this topic HIV Screening Discontinued HPV Vaccines Aged Out No longer eligi [...] age to complete this topic Pneumococcal Vaccine: 50+ Years Discontinued RSV Immunization Patients Under 20 months Aged Out No longer eligible based on patient's age to complete this topic Varicella Vaccines Aged Out No longer eligible based on patient's age to complete this topic Procedures Procedure Name Priority Date/Time Associated Diagnosis Comments COMPREHENSIVE METABOLIC PANEL Routine 09/04/2024 9:49 AM EDT Screening for metabolic disorder LIPID PANEL WITH REFLEX TO DIRECT LDL Routine 09/04/2024 9:49 AM EDT Screening for metabolic disorder Encounter for lipid screening for cardiovascular disease PROSTATE SPECIFIC ANTIGEN SCREEN Routine 09/04/2024 9:49 AM EDT Screening for prostate cancer VITAMIN D 25 HYDROXY Routine 09/04/2024 9:49 AM EDT Vitamin D deficiency HEPATITIS C SCREENING Routine 10/24/2022 COLONOSCOPY Routine 2020 from Last 3 Months or Most Recently Relevant to Health Maintenance Results * Prostate specific antigen screen (09/04/2024 9:49 AM EDT) PSA 0.55 0.00 - 4.00 ng/mL LAB CHEMISTRY METHOD 09/04/2024 4:07 PM EDT [facility] Blood Venous blood specimen / Unknown Venipuncture / Unknown 09/04/2024 9:49 AM EDT 09/04/2024 9:49 AM EDT Narrative [facility] - 09/04/2024 4:07 PM EDT The Siemens Advia Centaur Chemiluminescent Immunoassay is used. Results obtained with different assay methods or kits cannot be used interchangeably. Results cannot be interpreted as absolute evidence of the presence or absence of malignant disease. us Desire Negro NP LAB BLOOD ORDERABLES Final Resu lt [facility] [address] [place] [address], * (ABNORMAL) Lipid panel with reflex to direct LDL (09/04/2024 9:49 AM EDT) Cholesterol 195 0 - 200 mg/dL LAB CHEMISTRY METHOD 09/04/2024 3:26 PM EDT [facility] Triglycerides 99 0 - 150 mg/dL LAB CHEMISTRY METHOD 09/04/2024 3:26 PM EDT [facility] HDL 70 >=40 mg/dL LAB CHEMISTRY METHOD 09/04/2024 3:26 PM EDT [facility] LDL Calculated 105(H) 0 - 100 mg/dL LAB CHEMISTRY METHOD 09/04/2024 3:26 PM EDT [facility] VLDL Cholesterol Antonio 19.8 mg/dL LAB CHEMISTRY METHOD 09/04/2024 3:26 PM EDT [facility] Non HDL Chol. (LDL+VLDL) 125 <145 mg/dL LAB CHEMISTRY METHOD 09/04/2024 3:26 PM EDT [facility] Chol/HDL Ratio 2.8 0.0 - 4.4 LAB CHEMISTRY METHOD 09/04/2024 3:26 PM EDT [facility] Blood Venous blood specimen / Unknown Venipuncture / Unknown 09/04/2024 9:49 AM EDT 09/04/2024 9:49 AM EDT Desire Negro INSPECTOR CHIEF LAB BLOOD ORDERABLES Final Resu lt [facility] [address] [place] [address], * Vitamin D 25 hydroxy (09/04/2024 9:49 AM EDT) Vit D, 25-Hydroxy 36.4 30.0 - 80.0 ng/mL LAB CHEMISTRY METHOD 09/04/2024 4:06 PM EDT [facility] Blood Venous blood specimen / Unknown Venipuncture / Unknown 09/04/2024 9:49 AM EDT 09/04/2024 9:49 AM EDT us Desire Negro NP LAB BLOOD ORDERABLES Final Resu lt [facility] [address] [place] [address], [place] [phone] * Comprehensive metabolic panel (09/04/2024 9:49 AM EDT) Sodium 136 133 - 145 mmol/L LAB CHEMISTRY METHOD 09/04/2024 3:26 PM [facility] Potassium 4.7 3.5 - 5.5 mmol/L LAB CHEMISTRY METHOD 09/04/2024 3:26 PM [facility] Chloride 103 96 - 110 mmol/L LAB CHEMISTRY METHOD 09/04/2024 3:26 PM [facility] CO2 28 21 - 32 mmol/L LAB CHEMISTRY METHOD 09/04/2024 3:26 PM [facility] Anion Gap 5 3 - 11 LAB CHEMISTRY METHOD 09/04/2024 3:26 PM [facility] Glucose 85 70 - 100 mg/dL LAB CHEMISTRY METHOD 09/04/2024 3:26 PM [facility] BUN 16 5 - 25 mg/dL LAB CHEMISTRY METHOD 09/04/2024 3:26 PM [facility] Creatinine 1.14 0.70 - 1.30 mg/dL LAB CHEMISTRY METHOD 09/04/2024 3:26 PM [facility] eGFR 76 >=60 mL/min/1. 73m2 LAB CHEMISTRY METHOD 09/04/2024 3:26 PM [facility] Comment:Calculation based on the Chronic Kidney Disease Epidemiology Collaboration (CKD-EPI) equation refit without adjustment for race. BUN/Creatinine Ratio 14.0 LAB CHEMISTRY METHOD 09/04/2024 3:26 PM [facility] Calcium 9.7 8.5 - 10.5 mg/dL LAB CHEMISTRY METHOD 09/04/2024 3:26 PM EDT [facility] AST (SGOT) 20 10 - 42 unit/L LAB CHEMISTRY METHOD [facility]24 [facility] ALT (SGPT) 29 10 - 60 unit/L LAB CHEMISTRY METHOD 09/04/2024 3:26 PM EDT [facility] Alkaline Phosphatase 86 42 - 121 unit/L LAB CHEMISTRY METHOD 09/04/2024 3:26 PM T [facility] Total Protein 7.1 6.0 - 8.0 g/dL LAB CHEMISTRY METHOD 09/04/2024 3:26 PM [facility] Albumin 4.0 3.2 - 5.0 g/dL LAB CHEMISTRY METHOD 09/04/2024 3:26 PM T [facility] Total Bilirubin 0.8 0.0 - 1.4 mg/dL LAB CHEMISTRY METHOD 09/04/2024 3:26 PM T [facility] Blood Venous blood specimen / Unknown Venipuncture / Unknown 09/04/2024 9:49 AM EDT 09/04/2024 9:49 AM EDT Desire Negro NP LAB BLOOD ORDERABLES Final Resu lt [facility] [address] [place] [address], * Hepatitis C Screening (10/24/2022) [facility] Hepatitis C Screening abstracted Historical Provider HEALTH MAINTENANCE Final Result * Colonoscopy (2020) [facility]ologist [facility] Colonoscopy abstracted, no interpretation Anatomical Region Laterality Modality Other Historical Provider HEALTH MAINTENANCE Final Result from Last 3 Months or Most Recently Relevant to Health Maintenance Insurance [place] [id number] Care Teams Instrument Technologist Relationship Specialty Start Date End Date Desire Nergo NP [address] [facility] [place] [id number] PCP - General 05/04/22
--- OUTSIDE RECORDS SUMMARY | 2024-11-29 08:55 | XMS_ITS | Clinical Summary ---
Author Organization [facility] Address [address] [place] [address] Care Team Providers Care Package Sealer Name Role Phone Desire Negro NP Primary Care Provider [phone] Allergies No known active allergies Medications Medication [...] 87 01/25/2024 9:47 AM EDT Temperature 36.6 C (97.9 F) 01/25/2024 9:47 AM EDT Respiratory Rate - - Oxygen Saturation 98% [...] series) 08/10/2020 07/13/2020, 06/22/2020 Influenza Vaccine (#1) 2024 RSV Ped < 20 months Aged Out No longe r eligible based on patient's age to complete this topic Care Teams Package Sealer Relationship Specialty Start Date End Date Desire Negro NP [address] [place], [place] [phone] PCP - General Family Medicine 11/22/23
== END 2024-11-29 08:13 | disposition home or self-care (01) ==
LOC: HO.BBR 08:12
PROVIDERS: Visit Provider Internal Medicine
DX: D45 Polycythemia vera (principal)
CPT/HCPCS: 85018; 99195

== ENCOUNTER 2025-01-31 08:04 | Outpatient (REF) | payer OTHER, SELFPAY ==
--- OUTSIDE RECORDS SUMMARY | 2025-01-31 08:07 | XMS_ITS | Clinical Summary ---
Author Organization [facility] Address [address] [place] [address] Care Team Providers Care Wanigan Clerk Name Role Phone Desire Negro NP Primary Care Provider [phone] Allergies No known active allergies Medications Medication [...] age to complete this topic Care Teams Wanigan Clerk Relationship Specialty Start Date End Date Desire Negro NP [address] [place], [place] [phone] PCP - General Family Medicine 11/22/23
--- OUTSIDE RECORDS SUMMARY | 2025-01-31 08:07 | XMS_ITS | Encounter Summary ---
Author Organization [facility] Address [address] [facility] [address] [place], [place] [phone] Phone Care Team Providers Care Histologist Technologist Name Role Phone Aníbal Maurice MD Primary Care Provid er Encounter Details Date Type Department Care Team (Late st Contact Info) Description 04/13/2020 Procedure Pass [facility] Endoscopy Admitting Dept Virtual Department [address] [place] [address] Social History Tobacco Use Types Packs/Day Years [...] on filedocumented in this encounter Care Teams Histologist Technologist Relationship Specialty Start Date End Date Aníbal Maurice MD [address] [place] [address] PCP - General Internal Medicine 02/18/20 documented as of this encounter Additional Source Comments The information contained in this document represents components of the legal health record. It is not the complete legal health record.[facility]
--- OUTSIDE RECORDS SUMMARY | 2025-01-31 08:07 | XMS_ITS | Clinical Summary ---
Author Organization [facility] Address [address] [place] [address] Care Team Providers Care Hospital Mortician Name Role Phone Desire Negro NP Primary Care Provider [phone] Allergies No known active allergies Medications allopurinol [...] Encounters Date Type Department Care Team Description 01/06/2025 7:30 AM EDT Office Visit [facility] [address], [place] [address] Jb Anne MD Eustachian tube dysfunction, bilateral (Primary Dx); Conductive hearing loss of left ear with unrestricted hearing of right ear; Chronic serous otitis media, left ear from Last 3 Months Immunizations Immunization Administration [...] - - Weight 99.8 kg (220 lb) 01/06/2025 7:28 AM EDT Height 175.3 cm (5' 9 ) 01/06/2025 7:28 AM EDT Body Mass Index 32.49 01/06/2025 7:28 AM EDT Plan of Treatment Upcoming Encounters Date Type Department Care Team (Late st Contact Info) Description 02/24/2025 7:00 AM EST Office Visit [facility] [address] [phone] Jb Anne MD [address] [place] [phone] 04/17/2025 9:00 AM EST Clinical Support [facility] [address] [phone] Frieda Booker Au.D [address] [place] [phone] 04/17/2025 9:30 AM EST Office Visit [facility] [address] [phone] Jb Anne MD [address] [place] [address] Health Maintenance Due Date Last Done Comments Hepatitis C Virus Screening 1969 COVID-19 Vaccine (#1) 1974 HIV Screening 1982 DTaP/Tdap/Td Vaccines (1 - Tdap) 1988 Hepatitis B Vaccines (1 of 3 - 19+ 3-dose series) 12/02 Pneumococcal Vaccines 50+ (1 of 2 - PCV) 1988 Zoster (Shingles) Vaccine (1 of 2) 1988 Colonoscopy 2014 RSV Vaccine 50 years and old er and Patients (1 - Risk 50-74 years 1-dose series) 12/15/2019 Influenza Vaccine 11/01/2024 02/23/2024 Insurance Care Teams Hospital Mortician Relationship Specialty Start Date End Date Desire Negro NP [address] [place] [id number] PCP - General 09/13/24
--- OUTSIDE RECORDS SUMMARY | 2025-01-31 08:07 | XMS_ITS | Clinical Summary ---
Author Organization [facility] Address [address] [place], [place] [id number] Phone Care Team Providers Care Pin Puller Name Role Phone Aníbal Maurice MD Primary [...] 12/15/2019 ZOSTER VACCINES (1 of 2) 12/15/2019 INFLUENZA VACCINE (#1) 2024 COVID-19 VACCINE (3 - 2024-2 6 season) 2024 07/13/2020, 06/22/2020 COLONOSCOPY 04/13/2030 04/13/2020 COLORECTAL CANCER SCREENING 04/13/2030 RSV VACCINE (1 - 1-dose 75+ series) 2044 SMOKING STATUS SCREENING (On ce After 26 [...] (04/13/2020 11:18 AM EST) Narrative Transcriptions Oleg Lynn MD - 04/13/2020 11:18 AM EST Patient Name: Jeet Lynch Attending MD:: OLEG LYNN MD Procedure Date: 04/13/2020 11:18 AM Date of : 1970 Age: 49 Admit Type: Outpatient Gender: Male Room: [place] [address] Referring MD: Aníbal Maurice MD Exam Type: [...] monitored continuously. The Olympus adult variable colonoscope [id number] #2was introduced through the anus and advanced [...] colonoscopy in 10 years for screeningpurposes. OLEG LYNN MD 04/13/2020 11:44:42 AM This report has been signed electronically. Number of Addenda: 0 Note Initiated On: 04/13/2020 11:18 AM Procedure Code(s): --- Professional --- 85678, Colonoscopy, flexible; diagnostic, including collection of specimen(s) by brushing or washing, when performed (separateprocedure) --- Technical --- 38123, Colonoscopy, flexible; diagnostic, including collection of specimen(s) by brushing or washing, when performed (separateprocedure) Diagnosis Code(s): --- Professional --- Z83.71, Family history of colonic polyps --- Technical --- Z83.71, Family history of colonic polyps CPT copyright 2018 [employer]. All rights reserved. The codes documented in this report are preliminary and upon coder operator reviewmay be revised to meet current compliance requirements. Procedure Date: 04/13/2020 11:18:[address] [place] [address] Aníbal Maurice MD GI PROCEDURE ORDERAB LES Final Result from Last 3 Months or Most Recently Relevant to Health Maintenance Insurance [address]Home) [address]) [address]) [address] [facility] [place] [place] Address: [address] [address] Care Teams Pin Puller Relationship Specialty Start Date End Date Aníbal Maurice MD [address] [place] [address] PCP - General Internal Medicine 02/18/20 Additional Source Comments The information contained in this document represents components of the legal health record. It is not the complete legal health record.[facility]
== END 2025-01-31 08:05 | disposition home or self-care (01) ==
LOC: HO.BBR 08:04
PROVIDERS: Visit Provider Internal Medicine
DX: D45 Polycythemia vera (principal)
CPT/HCPCS: 85018; 99195

== ENCOUNTER 2025-03-21 10:06 | Outpatient (REF) | payer OTHER, SELFPAY ==
--- OUTSIDE RECORDS SUMMARY | 2025-03-21 11:22 | XMS_ITS | Clinical Summary ---
Author Organization [facility] Address [address] [place], [place] [phone] Phone Care Team Providers Care Supervisor Assembling Name Role Phone Aníbal Maurice MD Primary [...] 49 Admit Type: Outpatient Gender: Male Room: [place] [address] Referring MD: Aníbal Maurice MD Exam Type: [...] monitored continuously. The Olympus adult variable colonoscope [id number] #2was introduced through the anus and advanced [...] 11:18 AM Procedure Code(s): --- Professional --- 85087, Colonoscopy, flexible; diagnostic, including collection of specimen(s) by brushing or washing, when performed (separateprocedure) --- Technical --- 83985, Colonoscopy, flexible; diagnostic, including collection of specimen(s) by brushing or washing, when performed (separateprocedure) Diagnosis Code(s): --- Professional --- Z83.71, Family history of colonic polyps --- Technical --- Z83.71, Family history of colonic polyps CPT copyright 2018 [employer]. All rights reserved. The codes documented in this report are preliminary and upon electronics instructor reviewmay be revised to meet current compliance requirements. Procedure Date: 04/13/2020 11:18:[address] [place] [address] Aníbal Maurice MD GI PROCEDURE ORDERAB LES Final Result from Last 3 Months or Most Recently Relevant to Health Maintenance Insurance [address]Home) [address] HMO Care Teams Supervisor Assembling Relationship Specialty Start Date End Date Aníbal Maurice MD [address] [place] [address] PCP - General Internal Medicine 02/18/20 Additional Source Comments The information contained in this document represents components of the legal health record. It is not the complete legal health record.[facility]
--- OUTSIDE RECORDS SUMMARY | 2025-03-21 11:22 | XMS_ITS | Encounter Summary ---
Author Organization [facility] Address [address] [place], [place] [phone] Phone Care Team Providers Care Sole Leveling Machine Operator Name Role Phone Aníbal Maurice MD Primary Care Provid er Encounter Details Date Type Department Care Team (Late st Contact Info) Description 04/13/2020 Procedure Pass [facility] Endoscopy Admitting Dept Virtual Department [address] [place] [address] Social History Tobacco Use Types Packs/Day Years [...] on filedocumented in this encounter Care Teams Sole Leveling Machine Operator Relationship Specialty Start Date End Date Aníbal Maurice MD [address] [place] [address] PCP - General Internal Medicine 02/18/20 documented as of this encounter Additional Source Comments The information contained in this document represents components of the legal health record. It is not the complete legal health record.[facility]
--- OUTSIDE RECORDS SUMMARY | 2025-03-21 11:22 | XMS_ITS | Clinical Summary ---
Author Organization [facility] Prior to 08/31/24 Address [address] [place] [address] Care Team Providers Care Rn Ortho Name Role Phone Desire Negro NP Primary Care Provider [phone] Allergies No known active allergies Medications Medication [...] age to complete this topic Care Teams Rn Ortho Relationship Specialty Start Date End Date Desire Negro NP [address] [place] [address] PCP - General Family Medicine 11/22/23
--- OUTSIDE RECORDS SUMMARY | 2025-03-21 11:22 | XMS_ITS | Clinical Summary ---
Author Organization [facility] Address [address] [place] [address] Phone Care Team Providers Care Cable Splicer Apprentice Name Role Phone Desire Negro NP Primary Care Provider [phone] Allergies No known active allergies Medications cholecalciferol [...] BY MOUTH EVERY DAY 90 tablet 1 01/20/2025 Active Active Problems Problem Noted Date Diagnosed Date Primary polycythemia 03/11/2025 Primary hypertension 01/12/2024 Acute idiopathic gout of multiple sites 10/25/19 23 Thrombocytopenia 10/24/2022 Thrombocytosis 10/24/2022 Vitamin D deficiency 10/24/2022 Encounters Date Type Department Care Team Description 03/11/2025 8:30 AM EST [facility] [address] [place] [phone] Desire Negro NP Primary hypertension (Primary Dx); Primary polycythemia (CMS/HCC V24, CMS/HCC V28); Acute idiopathic gout of multiple sites; Immunization due from Last 3 Months Immunizations Immunization Administration Dates Next Due Influenza trivalent, MDCK, 0 .5mL, preservative free (Flucelvax) 6mo and older 03/11/2025,02/23/2024 Pfizer Covid-19 Bivalent, Or iginal + Ba.1 (Non-US Trademark CloudabilityIRQRGL Bivalent) 12/26/2021 Td Tetanus diptheria (Tdvax) 7yo [...] Sign Reading Time Taken Comments Blood Pressure 110/84 03/11/2025 8:58 AM EST Pulse 67 03/11/2025 8:46 AM EST Temperature 36.6 C (97.9 F) 08/06/2024 9:05 AM EDT Respiratory Rate - - Oxygen Saturation 100% 08/06/2024 9:05 AM EDT Inhaled Oxygen Concentration - - Weight 106 kg (233 lb 9.6 oz) 03/11/2025 8:46 AM EST Height 175.3 cm (5' 9 ) 03/11/2025 8:46 AM EST Body Mass Index 34.5 03/11/2025 8:46 AM EST Plan of Treatment Upcoming Encounters Date Type Department Care Team (Late st Contact Info) Description 04/14/2025 9:00 AM EST Office Visit [facility] Hematology Oncology [address] [place] [address] Alexus Graham MD [address] [place] [address] 09/22/2025 9:00 AM EDT Office Visit [facility] - [facility] [address] [place], [place] [phone] Desire Negro, CUSTOMER MARKETING INTERN [address] [facility] [place] [address] Health Maintenance Due Date Last Done Comments Zoster Vaccines (1 of 2) 1988 Social Influencers of Health Screening 03/06/2022 Hypertension/CHF/CAD Annual BMP Blood Test 09/04/2025 09/04/2024, 05/26/2023 Cholesterol Screening (Lipid Panel) 09/04/2029 09/04/2024, 05/26/2023 Colorectal Cancer Screening: Colonoscopy 2030 2020 DTaP,Tdap,and Td Vaccines (2 - Td or Tdap) 05/26/2033 05/26/2023 RSV Immunization Adult Patients (1 - 1-dose 75+ series) 2044 COVID-19 Vaccine Discontinued 03/14/2021, 03/2021, 06/22/2020 Hepatitis C Screening Completed 10/24/2022 Depression Screening Completed 03/11/2025 Influenza Vaccine Completed 03/11/2025, , 01/23/2022, Additional history exists HIB Vaccines Aged Out No longer eligi [...] Encounter for lipid screening for cardiovascular disease HEPATITIS C SCREENING Routine 10/24/2022 COLONOSCOPY Routine 2020 from Last 3 Months or Most Recently Relevant to Health Maintenance Results * (ABNORMAL) Lipid panel with reflex to direct LDL (09/04/2024 9:49 AM EDT) Cholesterol 195 0 - 200 mg/dL LAB CHEMISTRY METHOD 09/04/2024 3:26 PM EDT [facility] Triglycerides 99 0 - 150 mg/dL LAB CHEMISTRY METHOD 09/04/2024 3:26 PM EDT [facility] HDL 70 >=40 mg/dL LAB CHEMISTRY METHOD 09/04/2024 3:26 PM EDT [facility] LDL Calculated 105(H) 0 - 100 mg/dL LAB CHEMISTRY METHOD 09/04/2024 3:26 PM EDT [facility] VLDL Cholesterol Antonio 19.8 mg/dL LAB CHEMISTRY METHOD 09/04/2024 3:26 PM EDT [facility] Non HDL Chol. (LDL+VLDL) 125 <145 mg/dL LAB CHEMISTRY METHOD 09/04/2024 3:26 PM EDT [facility] Chol/HDL Ratio 2.8 0.0 - 4.4 LAB CHEMISTRY METHOD 09/04/2024 3:26 PM EDT [facility] Blood Venous blood specimen / Unknown Venipuncture / Unknown 09/04/2024 9:49 AM EDT 09/04/2024 9:49 AM EDT us Desire Negro NP LAB BLOOD ORDERABLES Final Resu lt [facility] [address] [place] [address], [place] [phone] * Comprehensive metabolic panel (09/04/2024 9:49 AM EDT) Sodium 136 133 - 145 mmol/L LAB CHEMISTRY METHOD 09/04/2024 3:26 PM [facility] Potassium 4.7 3.5 - 5.5 mmol/L LAB CHEMISTRY METHOD 09/04/2024 3:26 PM [facility] Chloride 103 96 - 110 mmol/L LAB CHEMISTRY METHOD 09/04/2024 3:26 PM [facility] CO2 28 21 - 32 mmol/L LAB CHEMISTRY METHOD 09/04/2024 3:26 PM [facility] Anion Gap 5 3 - 11 LAB CHEMISTRY METHOD 09/04/2024 3:26 PM [facility] Glucose 85 70 - 100 mg/dL LAB CHEMISTRY METHOD 09/04/2024 3:26 PM [facility] BUN 16 5 - 25 mg/dL LAB CHEMISTRY METHOD 09/04/2024 3:26 PM [facility] Creatinine 1.14 0.70 - 1.30 mg/dL LAB CHEMISTRY METHOD 09/04/2024 3:26 PM [facility] eGFR 76 >=60 mL/min/1. 73m2 LAB CHEMISTRY METHOD 09/04/2024 3:26 PM [facility] Comment:Calculation based on the Chronic Kidney Disease Epidemiology Collaboration (CKD-EPI) equation refit without adjustment for race. BUN/Creatinine Ratio 14.0 LAB CHEMISTRY METHOD 09/04/2024 3:26 PM [facility] Calcium 9.7 8.5 - 10.5 mg/dL LAB CHEMISTRY METHOD 09/04/2024 3:26 PM [facility] AST (SGOT) 20 10 - 42 unit/L LAB CHEMISTRY METHOD 09/04/2024 3:26 PM [facility] ALT (SGPT) 29 10 - 60 unit/L LAB CHEMISTRY METHOD 09/04/2024 3:26 PM EDT [facility] Alkaline Phosphatase 86 42 - 121 unit/L LAB CHEMISTRY METHOD 09/04/2024 3:26 PM EDT [facility] Total Protein 7.1 6.0 - 8.0 g/dL LAB CHEMISTRY METHOD 09/04/2024 3:26 PM EDT [facility] Albumin 4.0 3.2 - 5.0 g/dL LAB CHEMISTRY METHOD 09/04/2024 3:26 PM EDT [facility] Total Bilirubin 0.8 0.0 - 1.4 mg/dL LAB CHEMISTRY METHOD 09/04/2024 3:26 PM EDT [facility] Blood Venous blood specimen / Unknown Venipuncture / Unknown 09/04/2024 9:49 AM EDT 09/04/2024 9:49 AM EDT Desire Negro NP LAB BLOOD ORDERABLES Final Resu lt [facility] [address] [place] [address], * Hepatitis C Screening (10/24/2022) Hepatitis C Screening abstracted Historical Provider HEALTH MAINTENANCE Final Result * Colonoscopy (2020) Colonoscopy abstracted, no interpretation Anatomical Region Laterality Modality Other Historical Provider HEALTH MAINTENANCE Final Result from Last 3 Months or Most Recently Relevant to Health Maintenance Insurance Care Teams Cable Splicer Apprentice Relationship Specialty Start Date End Date Desire Negro NP [address] [place] [address] PCP - General 05/04/22
--- OUTSIDE RECORDS SUMMARY | 2025-03-21 11:22 | XMS_ITS | Clinical Summary ---
Author Organization [facility] Address [address] [place] [address] Care Team Providers Care Fuel Tank Sealer And Tester Name Role Phone Desire Negro NP Primary Care Provider [phone] Allergies No known active allergies Medications allopurinol [...] Encounters Date Type Department Care Team Description 02/24/2025 7:00 AM EST Office Visit [facility] [address] [phone] Jb Anne MD Chronic serous otitis media, left ear (Primary Dx); Eustachian tube dysfunction, bilateral 01/06/2025 7:30 AM EDT Office Visit [facility] [address] [place] [phone] Jb Anne MD Eustachian tube dysfunction, bilateral [...] - - Weight 99.8 kg (220 lb) 02/24/2025 6:57 AM EST Height 175.3 cm (5' 9 ) 02/24/2025 6:57 AM EST Body Mass Index 32.49 02/24/2025 6:57 AM EST Plan of Treatment Upcoming Encounters Date Type Department Care Team (Late st Contact Info) Description 04/17/2025 9:00 AM EST Clinical Support [facility] [address] [phone] Frieda Booker Au.D [address] [place] [address] 04/17/2025 9:30 AM EST Office Visit [facility] [address] [phone] Jb Anne MD [address] [place] [address] [place] [address] Health Maintenance Due Date Last Done Comments Hepatitis C Virus Screening 1970 COVID-19 Vaccine (#1) 06/13/1970 HIV Screening 1982 DTaP/Tdap/Td Vaccines (1 - Tdap) 1988 Hepatitis B Vaccines (1 of 3 - 19+ 3-dose series) 12/02 Pneumococcal Vaccines 50+ (1 of 2 - PCV) 1988 Zoster (Shingles) Vaccine (1 of 2) 1988 Colonoscopy 2014 RSV Vaccine 50 years and old er and Patients (1 - Risk 50-74 years 1-dose series) 12/15/2019 Influenza Vaccine 11/01/2024 02/23/2024 Insurance Care Teams Fuel Tank Sealer And Tester Relationship Specialty Start Date End Date Desire Negro NP [address] [place] [address] PCP - General 09/13/24
== END 2025-03-21 10:07 | disposition home or self-care (01) ==
LOC: HO.BBR 10:06
PROVIDERS: Visit Provider Internal Medicine
DX: D45 Polycythemia vera (principal)
CPT/HCPCS: 85018; 99195